=== PATIENT | male | born 1960 | race Caucasian/White ===

== ENCOUNTER 2016-07-25 11:47 | Emergency (ER) | payer OTHER ==
[~2016-07-25] VITALS: Ht 162.6 cm; Wt 72.3 kg
[~2016-07-25 11:47] MED LIST: LEXAPRO20 MG PO; LOPRESSOR100 MG PO; MAXIDE; METHADONE10 MG PO; MINOXIDIL2.5 MG PO; PRAVACHOL40 MG PO
[2016-07-25 13:27] LABS: BASOPHIL COUNT 0.1 K/uL (0-0.1); EOSINOPHIL (%) 1.4 % (0-5); EOSINOPHIL COUNT 0.1 K/uL (0-0.3); IMMATURE GRANULOCYTE (%) 0.1 % (0.0-0.7); INSTRUMENT ABS NEUTROPHIL CT 5.4 K/uL; LYMPHOCYTE COUNT 2.8 K/uL (1.0-2.8); MCH 24.9 PG (29.0-34.0); MCHC 32.3 G/DL (30.0-36.0); MCV 77.2 FL (86-99); MEAN PLAT.VOLUME 10.5 uM^3 (9.0-12.4); MONOCYTE (%) 10.5 % (3-12); NEUTROPHIL (%) 57.3 % (45-76); NEUTROPHIL COUNT 5.4 K/uL (1.8-6.4); PLATELET COUNT 251 K/uL (156-360); RBC DIS.WIDTH-CV 15.9 % (11.8-14.6); RED BLOOD COUNT 5.18 M/uL (4.00-5.50); WHITE BLOOD COUNT 9.4 K/uL (4.1-10.2)
[2016-07-25 13:30] LABS: CHLORIDE 105 mEq/L (99-109); POTASSIUM 4.5 mEq/L (3.7-5.4); SODIUM 141 mEq/L (136-147)
[2016-07-25 13:31] LABS: GLUCOSE 100 mg/dL (70-99)
[2016-07-25 13:32] VITALS: BP 149/73
[2016-07-25 13:33] LABS: ANION GAP 12 MEQ/L (2-14)
[2016-07-25 13:34] LABS: SERUM ETHYL ALCOHOL < 10 mg/dL
[2016-07-25 13:35] LABS: GFR ESTIMATE (CALCULATED) 47 mL/min/
[2016-07-25 13:36] LABS: UREA NITROGEN (BUN) 31 mg/dL (9-23)
== END 2016-07-25 13:33 | disposition home or self-care (01) ==
LOC: EME 11:47
PROVIDERS: Emergency Medicine
DX: G89.29 Other chronic pain (principal); M79.1 Myalgia; M06.9 Rheumatoid arthritis, unspecified; E11.9 Type 2 diabetes mellitus without complications; I10 Essential (primary) hypertension; Z87.891 Personal history of nicotine dependence
CPT/HCPCS: 80048; 81003; 85025; 99281; 99283; G0480